=== PATIENT | male | born 1985 | race Caucasian/White ===

== ENCOUNTER 2016-08-17 22:44 | Emergency (ER) | payer MEDICAID, MEDICARE ==
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
[2016-08-18] MEDS ORDERED: DIAZEPAM 5 MG/1 ML TUBX IM ONE (00:59)
== END 2016-08-18 01:28 | disposition home or self-care (01) ==
LOC: ER 22:44
DX: M54.31 Sciatica, right side (principal)
CPT/HCPCS: 96372; 99283; J3360